=== PATIENT | male | born 1950 | race Caucasian/White ===

== ENCOUNTER 2020-09-25 08:24 | Observation (INO) ==
--- NOTE | 2020-08-30 08:20 | ANES ---
Anesthesia Pre Procedure Eval HOME MEDICATIONS acetaminophen 500 mg tablet 500 mg PO Q6H PRN 11/29/19 [Last Taken Unknown] allopurinol 300 mg tablet See Rx Instructions PO DAILY 11/29/19 [Last Taken Unknown] antiarthritic combination no.2 900 mg tablet mg PO 11/29/19 [Last Taken Unknown] finasteride 1 mg tablet 1 mg PO DAILY 11/29/19 [Last Taken Unknown] naproxen 500 mg tablet 500 mg PO DAILY PRN 11/29/19 [Last Taken Unknown] triamterene 37.5 mg-hydrochlorothiazide 25 mg capsule 1 cap PO DAILY 11/29/19 [Last Taken Unknown] warfarin 10 mg tablet 10 mg PO 5XW tab 11/29/19 [Last Taken Unknown] warfarin 5 mg tablet 5 mg PO 2XW 11/29/19 [Last Taken Unknown] amlodipine 5 mg tablet 5 mg PO DAILY tab 08/23/20 [Last Taken Unknown] losartan 25 mg tablet 100 mg PO DAILY tab 08/23/20 [Last Taken Unknown] Allergies/Adverse Reactions: Allergies Allergy/AdvReac Type Severity Reaction Status Date / Time orphenadrine [From Norflex] Allergy Mild rash Verified 08/23/20 12:44 - Planned Procedure Planned Procedure: Left Arthroplasty Total Knee Medication List Reviewed:: Yes Allergies Verified: Yes Medical History (Last Reviewed 08/30/20 @ 08:15 by Farhad Dumas CRNA) Cellulitis Onset Date: ~02/2019 left leg Factor 5 Leiden mutation, heterozygous Onset Date: 2003 Gout Onset Date: Unknown Hypertension Onset Date: Unknown Pulmonary embolism Onset Date: 2003 1998 and 2003-[place] Surgical History (Last Reviewed 08/30/20 @ 08:15 by Farhad Dumas CRNA) Hx of lumbosacral spine surgery Onset Date: 2009 L5 laminectomy Hx of tonsillectomy Onset Date: 1963 S/P TURP Onset Date: 07/[address] Family History (Last Reviewed 08/30/20 @ 08:15 by Farhad Dumas CRNA) Father Cancer Mother Cancer Heart disease - Family Anesthesia History Family History:: no untoward family reactions to anesthesia, no familial bleeding tendencies, no family history of clotting disorders, no family history of premature - Airway/Neck/Teeth Within Normal Limits:: Yes Teeth Condition: intact Neck Exam: full range of motion Mallampatti Score: 2 Thyromental (T-M) distance: > 6 cm Mandibulo Hyoid distance: > 3 cm - Respiratory Respiratory History: sleep apnea, CPAP/BiPAP home use Respiratory Physical: lungs clear, decreased breath sounds Smoking Status: Former smoker Sleep Apnea currently treated: No Sleep Apnea by current assessment: No - Cardiovascular Cardiac History: arrhythmia, hypertension, valvular heart disease - tricuspid Tolerate Activity: Fair Heart Sounds: S1 & S2, Regular, Murmur - Gastrointestinal NPO since: 2400 - Anesthesia Assessment and Plan Narrative: Factor 5 Leiden, on warfarin to be discontinued 5 days prior, hx PE. ASA Class: PS, III Anesthesia Type Plan: Block - adductor canal for post op pain relief, Spinal - check INR first, possible General
[~2020-09-25 08:24] MED LIST: MORPHINE SULFATE 15 MG TABLET.SA PO PRN; ROPIVACAINE/CLONIDIN/KETOROLAC 50 ML SYRINGE IJ ONE; ROPIVACAINE/CLONIDIN/KETOROLAC 50 ML SYRINGE IJ PRN; TRANEXAMIC ACID 1,000 MG in NORMAL SALINE 100 ML IV PRN; ceFAZolin SODIUM 1 GM VIAL IV PRN; ceFAZolin SODIUM 1 GM VIAL ONE
[2020-09-25] MEDS: RINGER'S SOLUTION,LACTATED 1,000 ML IV PRN ×2 (08:43→10:15)
[2020-09-25 09:01] LABS: Hematocrit 43.9 % (42.0-52.0); Hemoglobin 14.3 gm/dL (13.5-18.0); Mean Cell Volume 90.7 fl (78-100); Mean Corpuscular Hemoglobin 29.5 pg (27-31); Mean Corpuscular Hgb Conc 32.6 g/dl (32-36); Mean Platelet Volume 10.1 fl (8-11.3); Platelet Count 143 K/mm3 (150-450); Red Blood Count 4.84 M/mm3 (4.7-6.0); Red Cell Distribution Width 14.3 % (11.5-14.0); White Blood Count 12.2 K/mm3 (4.0-10.5)
[2020-09-25] MEDS ORDERED: diphenhydrAMINE HCL 50 MG/ML VIAL IV PRN ×2 (09:06→11:09)
[2020-09-25] MEDS ORDERED: PROCHLORPERAZINE EDISYLATE 5 MG/ML VIAL IV PRN (09:06)
[2020-09-25] MEDS ORDERED: NALOXONE HCL 0.4 MG/ML VIAL IV PRN (09:06)
[2020-09-25] MEDS ORDERED: HYDROmorphone HCL 2 MG/ML VIAL IV PRN (09:06)
[2020-09-25] MEDS ORDERED: ONDANSETRON HCL/PF 2 MG/ML VIAL IV PRN ×2 (09:06→11:09)
[2020-09-25 09:14] LABS: Prothrombin Time (Patient) 12.4 Seconds (9.1-10.7)
[2020-09-25 09:15] LABS: INR 1.2 INR (0.92-1.08); Total Cells Counted 100
[2020-09-25] MEDS ORDERED: LIDOCAINE HCL 20 ML VIAL ONE (09:22)
[2020-09-25] MEDS ORDERED: BUPIVACAINE HCL 50 ML VIAL IJ ONE (09:22)
[2020-09-25] MEDS ORDERED: fentaNYL CITRATE/PF 50 MCG/ML AMPUL ONE (09:23)
[2020-09-25] MEDS ORDERED: PROPOFOL VIAL IV ONE (09:23)
[2020-09-25] MEDS ORDERED: ONDANSETRON HCL/PF 2 MG/ML VIAL ONE (09:23)
[2020-09-25 09:28] LABS: Atypical (Reactive) Lymph 3 % (0-2); Lymphocyte 38 % (20-51); Monocyte 7 % (0-9); Neutrophil 52 % (42-75); Neutrophil # 6.3 K/mm3 (1.3-6.0)
[2020-09-25 09:29] LABS: Platelet Estimate Normal (NORMAL); RBC Morphology Normal (NORMAL)
[2020-09-25] MEDS ORDERED: MAG HYDROX/ALUMINUM HYD/SIMETH 30 ML UDC PO PRN (11:09)
[2020-09-25] MEDS ORDERED: ZOLPIDEM TARTRATE 5 MG TABLET PO PRN (11:09)
[2020-09-25] MEDS ORDERED: MAGNESIUM HYDROXIDE 30 ML UDC PO PRN (11:09)
[2020-09-25] MEDS ORDERED: DEXTROSE 5%-LACTATED RINGERS 1,000 ML IV PRN (11:09)
[2020-09-25] MEDS ORDERED: ACETAMINOPHEN 500 MG TABLET PO PRN (11:09)
--- NOTE | 2020-09-25 11:09 | OR ---
Operative Report - Dictated Report Narrative: Date: 09/25/2020 Preoperative diagnosis: Left knee degenerative joint disease. Postoperative diagnosis: Left knee degenerative joint disease. Procedure: Left total knee arthroplasty. Surgeon: Ky Law M.D. Swimming Pool Maintenance: Louis Santos PA-C (provided and essential set of skilled, educated hands that assisted with transfer, positioning, prepping, draping, manipulation, retraction, placement of jigs, injection, insertion of implants, irrigation, closure wounds, and dressings all of which could not be performed by the available surgical crew) Anesthesia: Spinal with regional block and local periarticular joint injection. Complications: None Specimens: Bone. Estimated blood loss: Minimal. Tourniquet time: 80 minutes at 325 millimeters of mercury. Retained implants: Depuy Attune size 8 left lugged cemented posterior stabilized femoral component. Size 8 fixed-bearing cemented tibial platform. 8 by 5 millimeter posterior stabilized cross-linked tibial insert. 41 millimeter medialized patella button. Indications: Mr. Guerrero is a 70-year-old gentleman who has had longstanding left knee pain and arthrosis. This patient was followed in my clinic for period of time with significant complaints of left knee pain consistent with arthritic changes. He had failed conservative measures including, but not limited to, activity modification, passage of time, medications, and other conservative measures. Patient wished to proceed with surgical treatment. The risks, benefits, and alternatives were discussed in clinic. The risks of , blood clots, bleeding, infection, nerve/tendon blood vessel/ injury, malposition of components, intraoperative fracture, postoperative limited range of motion, persistent pain, failure of components, and need for additional procedures. Patient wished to proceed consent was obtained after answering all questions. Procedure: After marking the correct extremity on the floor, the patient was taken to the operating room. A timeout was performed. IV antibiotics consisting of Ancef were administered prior to the procedure. A regional followed by spinal anesthetic was induced by anesthesia, per my request, on the operative table with all bony prominences well-padded. Hopper catheter was placed, and a bump was placed under the operative side buttock. SCDs and LELA hose were utilized on the nonoperative leg. A well-padded tourniquet was applied to the operative thigh. The operative leg was then pre-scrubbed with alcohol, prepped, and draped in a standard sterile fashion. After exsanguinating the extremity with an Esmarch bandage, the tourniquet was inflated. After marking out the anterior knee for standard incision centered over the patella, the skin was incised and dissected down to the joint retinaculum. The joint retinaculum was marked out as well as the horizontal axis of the patella, and a standard medial parapatellar arthrotomy was then made. The most proximal aspect of the quadriceps tendon and the patella tendon insertion were protected from release. A partial synovectomy was performed as well as a resection of the infrapatellar fat pad. The distal femoral fat pad proximal to the trochlea was also resected using cautery. The soft tissues were elevated off the medial aspect of the proximal tibia using a Paulson elevator ensuring that we did not transect the medial collateral ligament. Upon initial evaluation range of motion was approximately 0 degrees to 120 degrees of flexion. There were signs of advanced arthrosis in the medial and patellofemoral greater than lateral joint spaces. There were large marginal osteophytes which were removed with a rongeur. The knee was hyperflexed and the patella was tucked laterally. Protecting the surrounding soft tissues with Homans, an entry drill was placed down the femoral canal using Whitesides line for guidance into the entry point. The intramedullary femoral alignment nely was utilized in order to cut the distal femur in 5 degrees of valgus resecting 10 millimeters of bone. Next the distal femur was sized to a size 8. A posterior referencing guide was utilized to place the distal femoral cutting block in 3 degrees of external rotation. This was pinned into place. The rotation was confirmed both visually and based on anatomic landmarks. The 4 in 1 cutting jig of the appropriate size was utilized in order to make all bony cuts. The omar wing was used to ensure no notching. Retractors were utilized in order to protect surrounding soft tissues. This cut did not result in any excessive notching. We then cut the box centered over the distal femur. This allowed for resection of the anterior and posterior cruciate ligaments. I then turned my attention to the preparation of the tibia. Using an extra medullary tibial alignment nely, 3 millimeters of bone was resected off the medial articular surface. This was made perpendicular to the mechanical axis of the joint with the alignment nely centered over the ankle mortise. The alignment nely was checked and was noted to be parallel to the mechanical axis, centered over the medial one third of the tibial tubercle, paralleling the anterior surface of the tibia. We then turned our attention to the remaining meniscus and soft tissues. These were removed while protecting the surrounding ligaments and soft tissues. The marginal osteophytes off the anterior, posterior, medial, lateral aspects of the femur and tibia were removed. The tibia was sized out to a size 8. Next the tibia was drilled and punched in an externally rotated position. Next the trial femur and a series of tibial inserts were utilized in order to allow for full extension and maximal flexion. It was found that a 5 millimeter insert gave the best range of motion and stability at multiple flexion points as well as at full extension there was less than 2 mm of gapping both medially and laterally. There is minimal anterior translation with the knee at 90 degrees of flexion and no signs of being able to dislocate the knee. The patella was then prepared. The initial thickness was 25 millimeters. This was reamed down to 15 millimeters parallel to the anterior surface of the patella. It was sized out to a size 41 medialized patella button. This was then drilled and trialed. Without any medial restraint the patella tracked appropriately and did not sublux or dislocate. At this point, it was felt these were the appropriate sized implants, and all trials were removed. The standard periarticular joint injection consisting of ropivacaine, Toradol, and epinephrine were injected into the periarticular joint tissues. The bony surfaces were thoroughly irrigated with a pulsatile-suction saline irrigation device. A bone plug from the prior resected anterior chamfer cut was placed into the drill hole at the distal femur. The bony surfaces were then dried in preparation for placement of the implants. The cement was vacuum mixed per the instrument and controls technician's instructions. The cement was placed on the dry bony surfaces and posterior aspect of the implants. The implants were impacted into place, removing all extruded cement. At this point anesthesia administered tranexamic acid per protocol intravenously. The knee was placed in extension with axial loading with the trial insert while the cement cured. Once the cement cured, all remaining extruded cement was removed. The knee was placed through a range of motion with the trial insert to ensure appropriate range of motion and stability. Final range of motion was approximately 0 to 120 degrees. The knee was again thoroughly irrigated with pulsatile saline lavage. The final polyethylene insert was then impacted into place ensuring no retained soft tissues. The remaining periarticular joint injection was injected. A medium Hemovac drain was placed exiting superior laterally. The knee was then placed over a triangle and the arthrotomy was closed with interrupted #1 Vicryl after thoroughly irrigating the joint. The deep and subcutaneous tissues were closed with interrupted 0 and 3-0 Vicryl respectively. Skin was closed with a running subcutaneous 3-0 Monocryl and Prineo Dermabond dressing. 4 x 4's, Sof-Rol, and a full leg Bony wrap were applied. All sponge, needle, blade, and instrument counts were correct prior to closing the wounds. Postoperative condition: The patient was awoken and transferred to the postanesthesia care unit in stable condition. Plan is to be admitted to the inpatient medical/surgical floor postoperatively for 24 hours of IV antibiotics, physical therapy, occupational therapy, and medical comanagement. Patient will be weightbearing as tolerated with range of motion as tolerated. DVT prophylaxis will be with SCDs, LELA hose, and pharmacological anticoagulation. Anticipated hospital stay is approximately 1-3 days.
[2020-09-25] MEDS: KETOROLAC TROMETHAMINE 15 MG/ML VIAL IV SCH ×2 (12:35→16:58)
--- NOTE | 2020-09-25 12:52 | ANES ---
Post Anesthesia Discharge - Transfer of Care Transfer of Care handoff given to nurse: Yes - Discharge from PACU Discharge from PACU when meets criteria: Yes - Discharge to ASU Discharge to ASU-no complications/pt stable: Yes
--- NOTE | 2020-09-25 12:58 | ANES ---
Anesthesia Procedure Note Procedure Note: ANESTHESIA PROCEDURE NOTE Date of Procedure: 09/25/2020. Time of procedure: 919. Performed by: Deon Bejarano CRNA Supervisor [employer] Assembly: None. Preprocedure diagnosis: Left knee degenerative joint disease. Post procedure diagnosis: Same. Procedure: Left ultrasound guided adductor canal block for postoperative analgesia. Indications: The patient is a 70-year-old male, requesting left ultrasound- guided abductor canal nerve block for postoperative analgesia related to left total knee arthroplasty. Findings: See below. Details of the procedure: The tissue over the intended target site was cleansed with ChloraPrepand draped in a sterile fashion. 2 ml Lidocaine 1 % was infiltrated to the skin and subcutaneous tissue at the intended target site. Under sterile technique and ultrasound guidance a 20-gauge block needle was inserted through the left sartorius muscle to the saphenous nerve just anterior and medial to the superficial femoral artery and vein. 15 mL's of 0.5% bupivacaine was injected after negative aspiration for blood. Needle tip and spread of local anesthetic surrounding the saphenous nerve was observed throughout the injection with real time ultrasound visualization. The needle was then removed intact. No complications were noted. The images were retained in the Hospital medical database. EBL: Minimal. Fluids: N/A. Specimen: N/A. Post procedure condition: The patient tolerated the procedure well. No complications were noted. Thank you for this consultation. Deon Bejarano CRNA
--- NOTE | 2020-09-25 12:58 | ANES ---
Post Anesthesia Assessment - Vital Signs Vitals: Last Vital Signs Temp 36.5 C 09/25/20 12:16 Pulse 51 L 09/25/20 12:51 Resp 18 09/25/20 12:51 BP 136/76 09/25/20 12:51 Pulse Ox 96 09/25/20 12:51 Airway Patency: Normal - Mental Status Level Of Consciousness: Awake - Pain Level Pain Score: 0 - N/V Assessment Nausea/Vomiting Presence: None Dehydration:: No
[2020-09-25] MEDS: ceFAZolin SODIUM 1 GM in DEXTROSE 5 % IN WATER 100 ML IV SCH ×4 (13:35→19:07)
[2020-09-25] MEDS: oxyCODONE HCL/ACETAMINOPHEN 1 TAB TABLET PO PRN ×2 (13:45→19:01)
[2020-09-25] MEDS ORDERED: WARFARIN SODIUM 5 MG TABLET PO SCH (17:00)
[2020-09-25] MEDS ORDERED: SENNOSIDES/DOCUSATE SODIUM 1 TAB TABLET PO SCH (21:00)
[2020-09-25] MEDS: MORPHINE SULFATE 15 MG TABLET.SA PO SCH (21:08)
[2020-09-26] MEDS: KETOROLAC TROMETHAMINE 15 MG/ML VIAL IV SCH ×3 (00:10→11:11)
[2020-09-26] MEDS: ceFAZolin SODIUM 1 GM in DEXTROSE 5 % IN WATER 100 ML IV SCH ×2 (00:11)
[2020-09-26] MEDS: oxyCODONE HCL/ACETAMINOPHEN 1 TAB TABLET PO PRN (06:56)
[2020-09-26 06:58] LABS: Hematocrit 40.1 % (42.0-52.0); Mean Cell Volume 92.2 fl (78-100); Mean Corpuscular Hemoglobin 29.9 pg (27-31); Mean Corpuscular Hgb Conc 32.4 g/dl (32-36); Mean Platelet Volume 10.2 fl (8-11.3); Platelet Count 118 K/mm3 (150-450); Red Blood Count 4.35 M/mm3 (4.7-6.0); Red Cell Distribution Width 14.2 % (11.5-14.0); White Blood Count 11.1 K/mm3 (4.0-10.5)
[2020-09-26 07:03] LABS: Anion Gap 9.3 mmol/L (6.8-13.8); BUN/Creatinine Ratio 14.8 (9.0-21.6); Calcium * 8.5 mg/dL (7.9-10.9); Carbon Dioxide 30.2 mmol/L (24-32.6); Estimated Creat Clear 49.1; Potassium 3.5 mmol/L (3.4-4.6); Prothrombin Time (Patient) 11.3 Seconds (9.1-10.7)
[2020-09-26 07:04] LABS: INR 1.09 INR (0.92-1.08)
[2020-09-26] MEDS ORDERED: TRIAMTERENE/HYDROCHLOROTHIAZID 1 TAB TABLET PO SCH (09:00)
[2020-09-26] MEDS ORDERED: ALLOPURINOL 300 MG TABLET PO SCH (09:00)
[2020-09-26] MEDS ORDERED: amLODIPine BESYLATE 5 MG TABLET PO SCH (09:00)
[2020-09-26] MEDS ORDERED: [UNRECOGNIZED DRUG - MIXTURE] PO SCH (09:00)
[2020-09-26] MEDS ORDERED: LORATADINE 10 MG TABLET PO SCH (09:00)
[2020-09-26] MEDS ORDERED: LOSARTAN POTASSIUM 50 MG TABLET PO SCH (09:00)
[2020-09-26] MEDS ORDERED: FINASTERIDE 5 MG TABLET PO SCH (09:00)
[2020-09-26] MEDS: MORPHINE SULFATE 15 MG TABLET.SA PO SCH (09:07)
[2020-09-26] MEDS ORDERED: ENOXAPARIN SODIUM 40 MG/0.4 ML SYRG SC SCH (10:00)
--- NOTE | 2020-09-26 14:17 | DS ---
(1) Hypertension Problem: Chronic (2) History of DVT (deep vein thrombosis) Problem: Chronic (3) Status post left knee replacement Problem: Acute (4) Gout Problem: Chronic (5) BPH (benign prostatic hyperplasia) Problem: Chronic (6) Factor V deficiency Problem: Chronic Date of Discharge:: 09/26/20 Hospital Course: Mr. Guerrero was admitted to the floor after undergoing left total knee arthroplasty. Tolerated this well. Was admitted to the floor postoperatively for 24 hours of IV antibiotics, pain control, medical comanagement, and occupational and physical therapy. OT and PT were consulted to assist with activities of daily living and ambulation. Was made weightbearing as tolerated with range of motion as tolerated. Pain was initially controlled with IV regimen. This was transitioned to oral once tolerating a by mouth intake. Was resumed on home diet and medications. A Hopper catheter was inserted in the operating room which was discontinued by postoperative day 1. A drain was placed intraoperatively into the knee which was discontinued on postoperative day 1. Home Coumadin, Lovenox, SCDs, and LELA hose were utilized for DVT prophylaxis. Vital signs remained stable to the hospital course. Labs were obtained which showed a final hemoglobin of 13.0 grams. BMP was reviewed and was stable. Physical examination throughout the hospital course showed an extremity that had sensation that was intact to light touch, palpable pulses, a benign wound, motor intact to the toes, ankle, and knee. Knee range of motion was approximately 5 degrees to 50 degrees. Once an oral pain regimen was tolerated and physical therapy goals were met, it was felt that they were stable for discharge to home. Instructions: Continue with weightbearing as tolerated and range of motion as tolerated. It is okay to shower and get the wound wet as long as there is no drainage from the wound. Do not bathe or soak the wound. If there is any drainage from the wound keep the wound clean and dry and cover with dry gauze and tape. Change every 2- 3 days as needed if there is any drainage. Cover wound while showering if there is any drainage. Continue with physical therapy. Resume home diet. Report any fever over 101.5 Fahrenheit, uncontrolled pain, increased drainage, foul odor of drainage, new or increased calf pain or shortness of breath, or any other significant complaints. A 325mg daily aspirin will be started after finishing anticoagulation if not allergic. Continue with LELA hose on the operative extremity until instructed otherwise. No driving until instructed otherwise. Follow up in approximately 2-3 weeks. Procedures Performed: see notes below List Procedures: Left total knee arthroplasty Results and Findings: Lab Pending Results 09/25/20 08:56: WBC 12.2 H, RBC 4.84, Hgb 14.3, Hct 43.9, MCV 90.7, MCH 29.5, MCHC 32.6, RDW 14.3 H, Plt Count 143 L, MPV 10.1, Neutrophils % (Manual) 52, Lymphocytes % (Manual) 38, Monocytes % (Manual) 7, Neutrophils # (Manual) 6.3 H, Lymphocytes # (Manual) 4.6 H, Monocytes # (Manual) 0.9, Atypic/Reactive Lymphs 3 H, Platelet Estimate Normal, RBC Morphology Normal 09/25/20 08:56: PT 12.4 H, INR (Anticoag Therapy) 1.20 H 09/26/20 06:30: WBC 11.1 H, RBC 4.35 L, Hgb 13.0 L, Hct 40.1 L, MCV 92.2, MCH 29.9, MCHC 32.4, RDW 14.2 H, Plt Count 118 L, MPV 10.2 09/26/20 06:30: Sodium 141, Plasma Sodium 142, Potassium 3.5, Chloride 105, Carbon Dioxide 30.2, Anion Gap 9.3, BUN 22, Creatinine 1.49 H, Est GFR (Non-Af Amer) 50 L, BUN/Creatinine Ratio 14.8, Random Glucose 143 H, Calcium 8.5 09/26/20 06:30: PT 11.3 H, INR (Anticoag Therapy) 1.09 H Disposition: Home self-care Condition: Good Discharge Activity: Activity as tolerated, Weight bearing Discharge Diet: General/regular food Referrals: Liz Shane ARNP [Non Staff Physicians] - Additional Patient Instructions (free text): Physical Therapy at [facility] on FridaySeptember 27 at 10:45am. Please fax PT order and demographics to fax# [phone] Follow up [facility] Orthopedic office appointment FridayOctober 13 at 9:00am. Prescriptions (Any new or edited meds): Morphine Sulfate [Ms Contin] 15 mg PO Q12H #10 tablet.sa Transmission Status: Received by [place] oxyCODONE HCL/ACETAMINOPHEN [Percocet 5 MG/325 MG] 1 - 2 tab PO Q4H PRN #50 tab PRN Reason: Moderate Pain (Pain Scale 4-6) Transmission Status: Received by [place] Promethazine HCl [Phenergan (Promethazine)] 25 mg PO QID PRN #30 tab PRN Reason: nausea/vomiting Transmission Status: Pending to [place] Sennosides/Docusate Sodium [Senokot-S] 2 tab PO HS #60 tab Transmission Status: Pending to [place], [place] Complete Home Medications List: Complete Home Medication List: allopurinol 300 mg tablet 450 mg PO DAILY 11/29/19 finasteride 1 mg tablet 1 mg PO DAILY 11/29/19 warfarin 10 mg tablet 10 mg PO Q2D tab 11/29/19 warfarin 5 mg tablet 5 mg PO 3XW 11/29/19 amlodipine 5 mg tablet 5 mg PO DAILY tab 08/23/20 Gluc Zaragoza/Chondro Zaragoza A/Vit C/Mn [Glucosamine Chondroitin Tab] 1 ea PO DAILY 08/30/20 Losartan Potassium 100 mg PO DAILY 08/30/20 Triamterene/Hydrochlorothiazid [Maxzide 75 MG/50 MG] 1 tab PO DAILY 08/30/20 Loratadine 10 mg PO DAILY 09/25/20 Morphine Sulfate [Ms Contin] 15 mg PO Q12H #10 tablet.sa 09/26/20 Promethazine HCl [Phenergan (Promethazine)] 25 mg PO QID PRN #30 tab 09/26/20 Sennosides/Docusate Sodium [Senokot-S] 2 tab PO HS #60 tab 09/26/20 oxyCODONE HCL/ACETAMINOPHEN [Percocet 5 MG/325 MG] 1 - 2 tab PO Q4H PRN #50 tab 09/26/20 Amb Orders for Discharge: PT Evaluation and Treatment* Facility: [facility], Location: Rehabilitation Services Forms: Patient Portal Registration
[2020-09-26 15:20] VITALS: BP 143/67
[2020-09-26] MEDS ORDERED: WARFARIN SODIUM 10 MG TABLET PO SCH (17:00)
== END 2020-09-26 15:35 | disposition home or self-care (01) ==
LOC: MS 08:24 → SUR 08:24
PROVIDERS: ADMIT Orthopaedic Surgery; ATTEND Orthopaedic Surgery
DX: I10 Essential (primary) hypertension; N40.0 Benign prostatic hyperplasia without lower urinary tract symptoms; Z86.711 Personal history of pulmonary embolism; M17.12 Unilateral primary osteoarthritis, left knee; M10.9 Gout, unspecified; Z79.01 Long term (current) use of anticoagulants